=== PATIENT | male | born 1980 | race African-American/Black ===

== ENCOUNTER 2016-08-09 07:56 | Day surgery (SDC) | payer OTHER ==
[~2016-08-09 07:56] MED LIST: DIPHENHYDRAMINE HCL 50 MG/ML VIAL ONE; EPINEPHRINE INJ 1 MG/10 ML DISP.SYRIN ONE; FLUMAZENIL INJ 0.5 MG/5 ML VIAL IV ONE; GLUCAGON,HUMAN RECOMB 1 MG INJ ONE; MIDAZOLAM 2 MG/2 ML INJ ONE; NALOXONE HCL INJ/PF 0.4 MG/1 ML SDV ONE; ONDANSETRON HCL INJ/PF 4 MG/2 ML SDV ONE; PROMETHAZINE HCL INJ 25 MG/1 ML VIAL ONE
[2016-08-09] MEDS: MIDAZOLAM 2 MG/2 ML INJ ONE ×2 (08:30→08:34)
[2016-08-09] MEDS: FENTANYL CITRATE INJ/PF 100 MCG/2 ML AMPUL ONE ×3 (08:32→08:36)
--- NOTE | 2016-08-09 09:01 | Operative Report ---
Operative Report DATE OF SURGERY: 08/09/16 Operative Report: The risks, benefits and alternatives of the procedure including risks of bleeding, perforation requiring surgery are explained to the patient detail and informed consent is obtained. Patient is placed in the left lateral decubital position brought back to the endoscopy suite. Timeout is called. Conscious sedation medications are provided. A rectal examination was done which did not reveal any masses, tears or fissures. An Olympus video scope was inserted into the patient's rectum. The scope was then gradually advanced all the way to the cecum. The cecum as identified by the usual anatomical landmarks of the ileocecal valve as well as the appendiceal office. Photodocumentation is obtained. The scope was then sequentially pulled back via the various segments of the colon including the ascending colon, hepatic flexure, transverse colon, splenic flexure, descending colon and finally into the rectosigmoid colon. Retroflexion maneuvers performed. PREOPERATIVE DIAGNOSIS: Rectal bleeding. POSTOPERATIVE DIAGNOSIS: Normal colonoscopy. Internal hemorrhoids OPERATION: Diagnostic colonoscopy SURGEON: AMANDA COSTA ANESTHESIA: Moderate Sedation - 4 mg of Versed, 125 micrograms of fentanyl. TISSUE REMOVED OR ALTERED: None. COMPLICATIONS: None. ESTIMATED BLOOD LOSS: none. INTRAOPERATIVE FINDINGS: No masses, AVMs, diverticulosis noted. Internal hemorrhoids noted PROCEDURE: Patient tolerated procedure well. No immediate postprocedure complications are noted. Patient is discharged in good condition. Discharge date: 08/09/16 Discharge diet: Regular. Discharge activity: Regular. Patient has a 2-3 follow-up to discuss findings. Patient is instructed to call the office or proceed to the emergency room after any further problems or questions.
[2016-08-09 09:49] VITALS: BP 131/81
== END 2016-08-09 09:50 | disposition home or self-care (01) ==
LOC: END 07:56
PROVIDERS: ATTEND Internal Medicine Gastroenterology
PROC: 0DJD8ZZ Inspection of Lower Intestinal Tract, Via Natural or Artificial Opening Endoscopic (ICD-10-PCS; principal; 2016-08-09 08:30)
DX: K62.5 Hemorrhage of anus and rectum (principal); K64.8 Other hemorrhoids
CPT/HCPCS: 45378; J2250; J3010; J0171; J1200; J1610; J2310; J2405; J2550; J3490

== ENCOUNTER 2020-04-03 18:38 | Observation (INO) | payer BC, OTHER ==
--- NOTE | 2020-04-03 19:06 | ER Document Report ---
ED Medical Screen (RME) - General Chief Complaint: Rectal Abscess Stated Complaint: RECTAL ABSCESS Time Seen by Provider: 04/03/20 19:01 TRAVEL OUTSIDE OF THE [place] IN LAST 30 DAYS: No - HPI Notes: 04/03/20 19:05 40-year-old male to the emergency department with complaints of a possible rectal abscess. He states this is been going on for about a week but got intensely painful in the past 2 to 3 days. He was seen at [facility] by nurse practitioner Bernadette Perdue. There was concern that the patient had a rectal abscess and that he had purulent discharge coming from his rectum. He was sent here for further evaluation and management. Patient denies any fevers or chills. He denies any blood on his toilet paper. He states he initially thought it was a hemorrhoid. He denies any nausea, vomiting, abdominal pain, chest pain, shortness of breath. I performed a brief medical screening exam on the patient determined that the patient needs further evaluation and management by main side provider. I have placed initial orders to help expedite care. - Related Data Allergies/Adverse Reactions: No Known Allergies Allergy (Verified 08/09/16 08:04) Past Medical History - Past Medical History Cardiac Medical History: Denies: Hx Coronary Artery Disease, Hx Heart Attack, Hx Hypertension Pulmonary Medical History: Denies: Hx Asthma, Hx Bronchitis, Hx COPD, Hx Pneumonia Neurological Medical History: Denies: Hx Cerebrovascular Accident, Hx Seizures Musculoskeltal Medical History: Denies Hx Arthritis - Immunizations Hx Diphtheria, Pertussis, Tetanus Vaccination: Yes Physical Exam - Vital signs Vitals: Temp Pulse Resp BP Pulse Ox 99.0 F 89 18 154/97 H 96 04/03/20 18:46 04/03/20 18:46 04/03/20 18:46 04/03/20 18:46 04/03/20 18:46 Course - Vital Signs Vital signs: Temp Pulse Resp BP Pulse Ox 99.0 F 89 18 154/97 H 96 04/03/20 18:46 04/03/20 18:46 04/03/20 18:46 04/03/20 18:46 04/03/20 18:46
[2020-04-03 19:39] LABS: ABSOLUTE BASOPHILS # (AUTO) 0.1 10^3/uL (0.0-0.2); ABSOLUTE LYMPHOCYTES (AUTO) 2.1 10^3/uL (0.5-4.7); ABSOLUTE MONOCYTES (AUTO) 0.5 10^3/uL (0.1-1.4); ABSOLUTE NEUT (AUTO) 5.7 10^3/uL (1.7-8.2); BASOPHILS % (AUTO) 1.2 % (0-2); EOSINOPHILS % (AUTO) 0.3 % (0-6); HEMATOCRIT 45.1 % (37.9-51.0); HEMOGLOBIN 15.7 g/dL (13.5-17.0); MEAN CORPUSCULAR HEMOGLOBIN 30.1 pg (27.0-33.4); MEAN CORPUSCULAR HGB CONC 34.9 g/dL (32.0-36.0); MEAN CORPUSCULAR VOLUME 87 fl (80-97); MONOCYTES % (AUTO) 5.5 % (3-13); PLATELET COUNT 288 10^3/uL (150-450); RED BLOOD COUNT 5.22 10^6/uL (4.35-5.55); RED CELL DISTRIBUTION WIDTH 13.6 % (11.5-14.0); TOTAL CELLS COUNTED % (AUTO) 100 %; WHITE BLOOD COUNT 8.4 10^3/uL (4.0-10.5)
[2020-04-03 20:00] LABS: ALBUMIN 4.6 g/dL (3.5-5.0); ALKALINE PHOSPHATASE 77 U/L (38-126); ANION GAP 11 (5-19); ASPARTATE AMINO TRANSFERASE 38 U/L (17-59); BILIRUBIN,DIRECT 0.3 mg/dL (0.0-0.4); BILIRUBIN,TOTAL 0.4 mg/dL (0.2-1.3); BLOOD UREA NITROGEN 10 mg/dL (7-20); CALCIUM 9.8 mg/dL (8.4-10.2); CARBON DIOXIDE 27 mmol/L (22-30); CHLORIDE 104 mmol/L (98-107); GLUCOSE 95 mg/dL (75-110); POTASSIUM 4.7 mmol/L (3.6-5.0); TOTAL PROTEIN 7.9 g/dL (6.3-8.2)
--- NOTE | 2020-04-03 20:24 | ER Document Report ---
ED GI Bleed / Rectal Pain - General Chief Complaint: Rectal Abscess Stated Complaint: RECTAL ABSCESS Time Seen by Provider: 04/03/20 19:01 Notes: Patient is a 40-year-old male who presents emergency department with a chief complaint of rectal pain. Patient states that for the past week he has had increased rectal pain. He was using [id number] hemorrhoid cream, but states that he was not having any relief with the hemorrhoid cream. He was seen by urgent care and was referred to the emergency department for possible perirectal abscess. Patient states that he does have some pain upon defecation. Patient had a colonoscopy back in 2017, which was unremarkable. This was done by Dr. Nieto. Patient denies any family history of colon cancer. TRAVEL OUTSIDE OF THE [place] IN LAST 30 DAYS: No - Related Data Allergies/Adverse Reactions: No Known Allergies Allergy (Verified 08/09/16 08:04) Past Medical History - Social History Smoking Status: Unknown if Ever Smoked Family History: Reviewed & Not Pertinent - Past Medical History Cardiac Medical History: Denies: Hx Coronary Artery Disease, Hx Heart Attack, Hx Hypertension Pulmonary Medical History: Denies: Hx Asthma, Hx Bronchitis, Hx COPD, Hx Pneumonia Neurological Medical History: Denies: Hx Cerebrovascular Accident, Hx Seizures Musculoskeletal Medical History: Denies Hx Arthritis - Immunizations Hx Diphtheria, Pertussis, Tetanus Vaccination: Yes Review of Systems - Review of Systems Notes: REVIEW OF SYSTEMS: CONSTITUTIONAL : Denies recent illness. Denies recent unintentional weight loss. Denies fever, chills, or sweats. EENT: Denies eye, ear, throat, or mouth pain, discharge, or symptoms. Denies nasal or sinus congestion. CARDIOVASCULAR: Denies chest pain. RESPIRATORY: Denies shortness of breath, cough, congestion, difficulty breathing, or wheezing. GASTROINTESTINAL: See HPI. GENITOURINARY: Denies difficulty urinating, burning, blood in urine, urgency or frequency. MUSCULOSKELETAL: Denies neck and back pain. Denies joint pain or swelling. SKIN: Denies rash, itchiness, or lesions HEMATOLOGIC : Denies easy bruising or bleeding. LYMPHATIC: Denies swollen, painful, enlarged glands. NEUROLOGICAL: Denies no numbness or tingling denies weakness. Denies headache. Denies altered mental status. Denies alteration in speech. PSYCHIATRIC: Denies stress, anxiety, alteration in sleep patterns, or depression. All other systems reviewed and negative. Physical Exam - Vital signs Vitals: Temp Pulse Resp BP Pulse Ox 99.0 F 89 18 154/97 H 96 04/03/20 18:46 04/03/20 18:46 04/03/20 18:46 04/03/20 18:46 04/03/20 18:46 - Notes Notes: PHYSICAL EXAMINATION: GENERAL: Appears well, healthy, well-nourished, no acute distress. HEAD: Normocephalic, atraumatic. EYES: PERRL, conjunctiva normal, all extraocular movements intact, sclera nonicteric ENT: Moist mucous membranes. NECK: Supple, no noticeable swelling, redness, rash. Normal range of motion. LUNGS: Equal breath sounds bilaterally and clear to auscultation. No wheezes rales or rhonchi. CARDIOVASCULAR: S1-S2, regular rate, regular rhythm. Radial pulses 2+, normal. ABDOMEN: Normoactive bowel sounds. Soft, nontender, no guarding, no rebound tenderness, and no masses palpated. EXTREMITIES: Normal strength and range of motion, no pitting or edema. No c yanosis. NEUROLOGICAL: Moves all extremities upon command. Strength 5/5 in all extremities. PSYCH: Normal mood, normal affect. SKIN: Warm, dry. No rash, lesions, ulcerations noted. Normal skin turgor. RECTAL: Course - Re-evaluation Re-evalutation: 04/03/20 20:28 Hematology is unremarkable chemistries are also unremarkable. 04/03/20 20:39 Rectal exam done with CHEPE Guadarrama at bedside. Patient did have some fluctuance on the outside of his anal area and multiple areas in his rectal area where he had fluctuance. On the outside, around the 4 o'clock position, it appears that that area may be an abscess. A small amount of purulent drainage came out of the area. 04/03/20 20:[address] Houston, the surgeon oncology rn. He will evaluate the patient. 04/03/20 21:01 Dr. Houston has evaluated the patient. The patient will be admitted to the surgical service. - Vital Signs Vital signs: Temp Pulse Resp BP Pulse Ox 99.0 F 89 18 154/97 H 96 04/03/20 18:46 04/03/20 18:46 04/03/20 18:46 04/03/20 18:46 04/03/20 18:46 - Laboratory Result Diagrams: 04/03/20 19:23 04/03/20 19:23 Discharge - Discharge Clinical Impression: Perirectal abscess Condition: Stable Disposition: ADMITTED INPATIENT Admitting Provider: Surgicalist Unit Admitted: Surgical Floor
--- NOTE | 2020-04-03 21:09 | PDOC H&P ---
History of Present Illness Patient complains of: Rectal pain History of Present Illness: TIM ENNIS is a 40 year old male Presents emergency department with 1 week history of rectal pain, swelling, intermittent drainage. He was seen by urgent care and found to have a anal abscess and was sent to the emergency department at [facility]. Patient was evaluated by the PA, found to have a perirectal abscess surgery was consulted. He is advised admission definitive management. His COVID status is unknown. Patient has a history of hemorrhoids, internal, status post colonoscopy by Dr. Duong in 2017. He denies fever, constipation, last bowel movement earlier today. Past Medical History Past Medical History: Internal hemorrhoids, rectal bleeding Cardiac Medical History: Denies: Coronary Artery Disease, Myocardial Infarction, Hypertension Pulmonary Medical History: Denies: Asthma, Bronchitis, Chronic Obstructive Pulmonary Disease (COPD), Pneumonia Neurological Medical History: Denies: Seizures Musculoskeltal Medical History: Denies: Arthritis Hematology: Denies: Anemia Past Surgical History Past Surgical History: Reports: None Social History Information Source: Patient Smoking Status: Unknown if Ever Smoked Electronic Cigarette use?: No Frequency of Alcohol Use: None Hx Recreational Drug Use: No Family History Family History: None, Reviewed & Not Pertinent Parental Family History Reviewed: No Children Family History Reviewed: No Sibling(s) Family History Reviewed.: No Medication/Allergy Home Medications: Ibuprofen [Motrin 400 mg Tablet] 400 mg PO ASDIR PRN 08/07/16 Loratadine [Claritin 10 mg Tablet] 10 mg PO DAILY 08/07/16 Allergies/Adverse Reactions: No Known Allergies Allergy (Verified 08/09/16 08:04) Review of Systems Constitutional: PRESENT: as per HPI Eyes: ABSENT: visual disturbances Ears: ABSENT: hearing changes Cardiovascular: ABSENT: chest pain, dyspnea on exertion, edema, orthropnea, palpitations Respiratory: ABSENT: cough, hemoptysis Gastrointestinal: PRESENT: as per HPI Genitourinary: ABSENT: dysuria, hematuria Integumentary: ABSENT: rash, wounds Neurological: ABSENT: abnormal gait, abnormal speech, confusion, dizziness, focal weakness, syncope Physical Exam Vital Signs: Temp Pulse Resp BP Pulse Ox 99.0 F 89 18 154/97 H 96 04/03/20 18:46 04/03/20 18:46 04/03/20 18:46 04/03/20 18:46 04/03/20 18:46 Intake & Output 04/02/20 04/03/20 04/04/20 06:59 06:59 06:59 Weight 148.5 kg General appearance: PRESENT: no acute distress Head exam: PRESENT: normocephalic Eye exam: PRESENT: EOMI Mouth exam: PRESENT: dry mucosa Neck exam: PRESENT: full ROM Respiratory exam: PRESENT: clear to auscultation eva Cardiovascular exam: PRESENT: RRR Pulses: PRESENT: normal carotid pulses, normal femoral pulses GI/Abdominal exam: PRESENT: soft Rectal exam: PRESENT: other - Patient will left lateral cubitus position. Left lateral perianal tissue excoriated, red area of 2 x 3 cm, underlying tissue very tense, swollen and tender. Psychiatric exam: PRESENT: appropriate affect Focused psych exam: PRESENT: other - Intact Skin exam: PRESENT: intact Results Laboratory Results: 04/03/20 19:23 04/03/20 19:23 04/03/20 04/03/20 19:23 19:23 WBC 8.4 RBC 5.22 Hgb 15.7 Hct 45.1 MCV 87 MCH 30.1 MCHC 34.9 RDW 13.6 Plt Count 288 Seg Neutrophils % 68.0 Sodium 141.6 Potassium 4.7 Chloride 104 Carbon Dioxide 27 Anion Gap 11 BUN 10 Creatinine 1.24 Est GFR ( Amer) > 60 Glucose 95 Calcium 9.8 Total Bilirubin 0.4 AST 38 Alkaline Phosphatase 77 Total Protein 7.9 Albumin 4.6 Assessment & Plan - Diagnosis (1) Perirectal abscess Is this a current diagnosis for this admission?: Yes Plan: Impression: Subacute perianal abscess and otherwise healthy 40-year-old male Recommendations: 1. Admit to surgical service, n.p.o. IV fluids pain medication 2. We will check COVID status 3. Plan for examination under anesthesia, abscess drainage, possible drain or loop placement, possible fistulotomy possible seton placement, Dr. Houston, April 04, and general anesthesia. The risk benefits and alternatives to planned procedure were explained to the patient, and the patient Expressed his understanding agree to proceed - Time Time Spent: 30 to 50 Minutes Critical Time spent with patient: Less than 15 minutes Medications reviewed and adjusted accordingly: Yes Anticipated Discharge Disposition: Home, Self Care Anticipated Discharge Timeframe: within 48 hours - Inpatient Certification Based on my medical assessment, after consideration of the patient's comorbidities, presenting symptoms, or acuity I expect that the services needed warrant INPATIENT care.: Yes Medical Necessity: Need For IV Fluids, Need for Pain Control, Need for IV Antibiotics, Need for Surgery
[2020-04-03] MEDS ORDERED: METRONIDAZOLE 500 MG/NS RTU 100 ML IV SCH (21:15)
[2020-04-03] MEDS: RINGERS SOLUTION,LACTATED 1,000 ML IV PRN (21:43)
[2020-04-03] MEDS: KETOROLAC TROMETHAMINE INJ/PF 30 MG/1 ML SDV IV PRN (21:43)
[2020-04-03] MEDS: METRONIDAZOLE 500 MG/NS RTU 500 MG/100 ML RTUPB IV SCH (23:22)
[2020-04-04] MEDS: KETOROLAC TROMETHAMINE INJ/PF 30 MG/1 ML SDV IV PRN ×3 (03:41→23:58)
[2020-04-04] MEDS: RINGERS SOLUTION,LACTATED 1,000 ML IV PRN (05:14)
[2020-04-04] MEDS: METRONIDAZOLE 500 MG/NS RTU 500 MG/100 ML RTUPB IV SCH ×3 (05:14→21:14)
[2020-04-04] MEDS ORDERED: LIDOCAINE 2% INJ-PF (20 MG/ML) 10 ML AMPUL ONE (08:16)
[2020-04-04] MEDS ORDERED: FENTANYL CITRATE INJ/PF 100 MCG/2 ML AMPUL ONE (08:17)
[2020-04-04] MEDS ORDERED: MIDAZOLAM 2 MG/2 ML INJ ONE (08:17)
[2020-04-04] MEDS ORDERED: PROPOFOL INJ 200 MG/20 ML VIAL IV ONE (08:17)
[2020-04-04] MEDS ORDERED: ONDANSETRON HCL INJ/PF 4 MG/2 ML SDV ONE (08:17)
[2020-04-04] MEDS ORDERED: BUPIVACAINE HCL 0.5 % INJ/PF 30 ML SDV ONE (08:37)
[2020-04-04] MEDS ORDERED: EPHEDRINE SULFATE INJ 50 MG/1 ML AMPULE ONE (09:09)
--- NOTE | 2020-04-04 09:35 | Operative Report ---
Operative Report DATE OF SURGERY: 04/04/20 PREOPERATIVE DIAGNOSIS: 1. Left perianal abscess. 2. Obesity POSTOPERATIVE DIAGNOSIS: Same with fistula in ano left posterior lateral position OPERATION: 1. Examination of anal canal under anesthesia. 2. Drainage of left posterior lateral perianal abscess. 3. Placement of loop seton SURGEON: JANNY MINOR ANESTHESIA: Spinal TISSUE REMOVED OR ALTERED: Puss COMPLICATIONS: None ESTIMATED BLOOD LOSS: Minimal INTRAOPERATIVE FINDINGS: See below PROCEDURE: The patient was taken to the holding area to the main operating room where spinal anesthesia was induced by Dr. Cota, anesthesiologist. The patient was then placed in the prone jackknife position, buttock care shaved, buttock exposed, taped widely. The perianal tissue was prepped and draped with Betadine. Surgical plan and surgical timeout were conducted. Findings are significant for spontaneously draining left posterior lateral perianal abscess. The abscess territory was anesthetized with quarter percent Marcaine. A #15 blade was used to make a radial incision in the left slightly posterior lateral position. Pus and fluid evacuated and sent for Gram stain culture and sensitivity. Loculations were broken up in the subcutaneous tissue. The anal canal was dilated up to admit two adult fingers. Bullet anoscope inserted and circumferential examination of the anal canal revealed a thickened area, with a indentation at the dentate canal in the mid posterior position. With the anoscope in place, I insinuated a metallic probe through the abscess cavity drainage site into the anal canal at the site of origination of the fistula confirming Hood goodsall rule with the posterior abscess originating from a fistula in the midline position. It was unclear through the tract traversed any of the external sphincter muscle; if any it was a very small amount nonetheless I decided to place a seton and this was accomplished by threading a Dev loop through the fistula tract and through the anal canal and tied in a knot. Reinspection of the anal canal revealed no other pathology. We felt the operation was complete. The abscess cavity was irrigated and packed with iodoform packing. Patient tolerated the procedure well, rotated in the supine position, taken to recovery room in stable condition.
[2020-04-04] MEDS ORDERED: ACETAMINOPHEN WITH CODEINE #3 TABLET PO PRN (09:36)
[2020-04-04] MEDS ORDERED: BUPIVACAINE HCL 0.25 % INJ/PF (2.5 MG/1 ML) 30 ML VIAL ONE (09:38)
[2020-04-04] MEDS ORDERED: METRONIDAZOLE 500 MG/NS RTU 500 MG/100 ML RTUPB IV SCH (09:45)
[2020-04-04] MEDS ORDERED: FENTANYL CITRATE INJ/PF 100 MCG/2 ML AMPUL IV PRN ×3 (09:56)
[2020-04-04] MEDS ORDERED: MEPERIDINE HCL/PF INJ 25 MG/1 ML DISP.SYRIN IV PRN (09:56)
[2020-04-04] MEDS ORDERED: DIPHENHYDRAMINE HCL 50 MG/ML VIAL IV PRN (09:56)
[2020-04-04] MEDS ORDERED: MORPHINE SULFATE 10 MG/ML INJ IV PRN (09:56)
[2020-04-04] MEDS ORDERED: PROMETHAZINE HCL INJ 25 MG/1 ML VIAL IV PRN ×2 (09:56)
[2020-04-04] MEDS ORDERED: OXYCODONE-ACETAMINOPHEN 5-325 MG TABLET PO PRN ×2 (09:56)
[2020-04-04] MEDS ORDERED: LIDOCAINE 1% INJ (10 MG/ML) 10 ML MDV INJ ONE (10:32)
[2020-04-04] MEDS: DOCUSATE SODIUM 100 MG CAPSULE PO SCH ×2 (11:29→17:42)
[2020-04-05] MEDS: METRONIDAZOLE 500 MG/NS RTU 500 MG/100 ML RTUPB IV SCH (05:19)
[2020-04-05] MEDS: KETOROLAC TROMETHAMINE INJ/PF 30 MG/1 ML SDV IV PRN (05:32)
[2020-04-05] MEDS: DOCUSATE SODIUM 100 MG CAPSULE PO SCH (09:48)
--- NOTE | 2020-04-05 10:52 | PDOC DISCHARGE SUMMARY ---
General - Admit/Disc Date/PCP Admission Date/Primary Care Provider: 04/03/20 21:20 Discharge Date: 04/05/20 - Discharge Diagnosis Final Diagnosis: Perirectal abscess - Assessment Summary: 40-year-old male admitted to the hospital with a perirectal abscess. The patient underwent incision and drainage. He is doing well. His packing was removed on postoperative day #1. The patient has been encouraged to shower, and keep the area clean. At this time he is ambulating, tolerating a diet, afebrile, and it is felt that he had reached maximal hospital benefit. At this time he is medically fit for discharge. - Additional Information Discharge Diet: As Tolerated Discharge Activity: Balance Activity w/Rest Prescriptions: Metronidazole [Flagyl 500 mg Tablet] 500 mg PO TID #15 tablet Levofloxacin [Levaquin 500 mg Tablet] 500 mg PO DAILY #5 tablet Hydrocodone/Acetaminophen [[place] 5-325 mg Tablet] 1 tab PO Q6HP PRN #10 tablet PRN Reason: For Pain Home Medications: Hydrocodone/Acetaminophen [[place] 5-325 mg Tablet] 1 tab PO Q6HP PRN #10 tablet 04/05/20 Levofloxacin [Levaquin 500 mg Tablet] 500 mg PO DAILY #5 tablet 04/05/20 Metronidazole [Flagyl 500 mg Tablet] 500 mg PO TID #15 tablet 04/05/20 Additional Information: Discharge home. Diet as tolerated. Activity: Nonstrenuous. Okay to shower. Wash incision with soap and water twice daily and after bowel movements. Flagyl 500 mg p.o. 3 times daily. Levaquin 500 mg p.o. daily. [place] 5/325 mg p.o. every 6 hours PRN for pain. Follow-up with [facility] in 1 week. History of Present Illiness History of Present Illness: TIM ENNIS is a 40 year old male Physical Exam Vital Signs: Temp Pulse Resp BP Pulse Ox 98.5 F 55 L 16 139/76 H 97 04/05/20 07:48 04/05/20 07:48 04/05/20 07:48 04/05/20 07:48 04/05/20 07:48 Intake & Output 04/04/20 04/05/20 04/06/20 06:59 06:59 06:59 Intake Total 1200 3940 Output Total 385 Balance 1200 3555 Weight 147.4 kg 149.5 kg Results Laboratory Results: WBC 8.4 10^3/uL (4.0-10.5) 04/03/20 19: RBC 5.22 10^6/uL (4.35-5.55) 04/03/20 19: Hgb 15.7 g/dL (13.5-17.0) 04/03/20: Hct 45.1 % (37.9-51.0) 04/03/20: MCV 87 fl (80-97) 04/03/20: MCH 30.1 pg (27.0-33.4) 04/03/20: MCHC 34.9 g/dL (32.0-36.0) 04/03/20: RDW 13.6 % (11.5-14.0) 04/03/20 19: Plt Count 288 10^3/uL (150-450) 04/03/20 19: Lymph % (Auto) 25.0 % (13-45) 04/03/20 19: G[place]rie % (Auto) 5.5 % (3-13) 04/03/20: Eos % (Auto) 0.3 % (0-6) 04/03/20: Baso % (Auto) 1.2 % (0-2) 04/03/20 19: Absolute Neuts (auto) 5.7 10^3/uL (1.7-8.2) 04/03/20: Absolute Lymphs (auto) 2.1 10^3/uL (0.5-4.7) 04/03/20 19: Absolute Monos (auto) 0.5 10^3/uL (0.1-1.4) 04/03/20: Absolute Eos (auto) 0.0 10^3/uL (0.0-0.6) 04/03/20: Absolute Basos (auto) 0.1 10^3/uL (0.0-0.2) 04/03/20 19: Seg Neutrophils % 68.0 % (42-78) 04/03/20 19: Sodium 141.6 mmol/L (137-145) 04/03/20 19:23 Potassium 4.7 mmol/L (3.6-5.0) 04/03/20 19:23 Chloride 104 mmol/L (98-107) 04/03/20 19:23 Carbon Dioxide 27 mmol/L (22-30) 04/03/20 19:23 Anion Gap 11 (5-19) 04/03/20 19:23 BUN 10 mg/dL (7-20) 04/03/20 19:23 Creatinine 1.24 mg/dL (0.52-1.25) 04/03/20 19:23 Est GFR ( Amer) > 60 (>60) 04/03/20 19:23 Est GFR (MDRD) Non-Af > 60 (>60) 04/03/20 19:23 Glucose 95 mg/dL (75-110) 04/03/20 19:23 Calcium 9.8 mg/dL (8.4-10.2) 04/03/20 19:23 Total Bilirubin 0.4 mg/dL (0.2-1.3) 04/03/20 19:23 Direct Bilirubin 0.3 mg/dL (0.0-0.4) 04/03/20 19:23 Neonat Total Bilirubin Not Reportable 04/03/20 19:23 Neonat Direct Bilirubin Not Reportable 04/03/20 19:23 Neonat Indirect Bili Not Reportable 04/03/20 19:23 AST 38 U/L (17-59) 04/03/20 19:23 ALT 33 U/L (<50) 04/03/20 19:23 Alkaline Phosphatase 77 U/L (38-126) 04/03/20 19:23 Total Protein 7.9 g/dL (6.3-8.2) 04/03/20 19:23 Albumin 4.6 g/dL (3.5-5.0) 04/03/20 19:23 COVID-19 Source See comment 04/04/20 23:59
[2020-04-05 12:36] VITALS: BP 128/80
== END 2020-04-05 12:53 | disposition home or self-care (01) ==
LOC: ER 18:38 → EH 21:20 → INTOOBSV 21:20 → 4N 22:51
DX: K61.1 Rectal abscess (principal); K62.89 Other specified diseases of anus and rectum; Z79.899 Other long term (current) drug therapy; Z20.828 Contact with and (suspected) exposure to other viral communicable diseases
CPT/HCPCS: 46050; 99285; 36415; 87070; 87205; 85025; 87075; 87077; 80053; 87186; 99140; 00902; G0378 ×4; U0003; J2250; J3490 ×6; J3010; J1885 ×3; J2405; J7120 ×2; C9803; 87635; 902; J2704